=== PATIENT | female | born 1950 | race Hispanic/Latino ===

== ENCOUNTER 2018-12-04 07:12 | Day surgery (SDC) | payer OTHER ==
[~2018-12-04] VITALS: Ht 157.5 cm; Wt 99.8 kg
[~2018-12-04 07:12] MED LIST: AMLO5TAB9 PO; ASPI-555 PO; ATOR-2 PO; CARV25TA PO; CHOL100040 PO; GLIP5TAB11 PO; LEVO5TAB13 PO; LOSA100T58 PO; MECL12.585 PO; SERT100T12 PO; SODIUM CHLORIDE 0.9% 1000ML 1,000 ML IV ONE
[2018-12-04 08:19] VITALS: BP 162/82
[2018-12-04 10:04] VITALS: BP 142/65
[2018-12-04 10:09] VITALS: BP 141/65
[2018-12-04 10:14] VITALS: BP 147/76
[2018-12-04 10:19] VITALS: BP 142/76
[2018-12-04 10:24] VITALS: BP 140/76
--- NOTE | 2018-12-04 10:25 | NUR ---
dc pt dc home via [place],no distress noted. denied any pain or discomforts.accompanied by sister.
== END 2018-12-04 10:25 | disposition home or self-care (01) ==
LOC: ENDO 07:12 → DAH 07:12 → ENDO 10:25
PROVIDERS: ATTEND Internal Medicine Gastroenterology
DX: Z12.11 Encounter for screening for malignant neoplasm of colon (principal); K63.5 Polyp of colon; K57.30 Diverticulosis of large intestine without perforation or abscess without bleeding; K64.0 First degree hemorrhoids; I10 Essential (primary) hypertension; F32.9 Major depressive disorder, single episode, unspecified; F41.9 Anxiety disorder, unspecified; M19.90 Unspecified osteoarthritis, unspecified site; E11.9 Type 2 diabetes mellitus without complications; Z79.82 Long term (current) use of aspirin; Z79.899 Other long term (current) drug therapy; E78.2 Mixed hyperlipidemia; Z90.49 Acquired absence of other specified parts of digestive tract; Z86.73 Personal history of transient ischemic attack (TIA), and cerebral infarction without residual deficits
CPT/HCPCS: 45380; 82948 ×2; 88305; A4606; J7030

== ENCOUNTER → 2019-01-20 | Outpatient (CLI) | payer OTHER ==
[~2019-01-20] MED LIST changes: -SODIUM CHLORIDE 0.9% 1000ML 1,000 ML IV ONE
== END | disposition home or self-care (01) ==
LOC: RAH 08:27
PROVIDERS: ATTEND Psychiatry & Neurology Neurology
DX: G93.89 Other specified disorders of brain (principal); I65.21 Occlusion and stenosis of right carotid artery; I51.7 Cardiomegaly; I67.82 Cerebral ischemia; I63.9 Cerebral infarction, unspecified; Z86.73 Personal history of transient ischemic attack (TIA), and cerebral infarction without residual deficits
CPT/HCPCS: 70551; 93306; 93880

== ENCOUNTER 2019-08-13 16:51 | Emergency (ER) | payer OTHER ==
[~2019-08-13 16:51] MED LIST changes: +AMLO-257 PO; -AMLO5TAB9 PO; -ASPI-555 PO; +ASPI-556 PO; +MECL-183 PO; -MECL12.585 PO
[2019-08-13] MEDS ORDERED: ONDANSETRON HCL 4 MG/2 ML VIAL ONE (17:33)
[2019-08-13] MEDS ORDERED: MORPHINE SULFATE 4 MG/1ML SYG ONE (17:34)
== END 2019-08-13 19:05 | disposition home or self-care (01) ==
LOC: EDH 16:51
DX: S42.412A Displaced simple supracondylar fracture without intercondylar fracture of left humerus, initial encounter for closed fracture (principal); E11.9 Type 2 diabetes mellitus without complications; I10 Essential (primary) hypertension; Z88.7 Allergy status to serum and vaccine; Z86.73 Personal history of transient ischemic attack (TIA), and cerebral infarction without residual deficits; Z90.49 Acquired absence of other specified parts of digestive tract; Z98.890 Other specified postprocedural states; W18.39XA Other fall on same level, initial encounter; Y93.01 Activity, walking, marching and hiking; Y92.89 Other specified places as the place of occurrence of the external cause; Y99.8 Other external cause status
CPT/HCPCS: 29105; 73030; 73070; 96374; 96375; 99284; J2270; J2405